=== PATIENT | male | born 1940 | race Caucasian/White ===

== ENCOUNTER 2017-04-05 11:51 | Emergency (ER) | payer MEDICARE ==
[~2017-04-05] VITALS: Ht 182.9 cm; Wt 90.8 kg
[~2017-04-05 11:51] MED LIST: FOSI20 PO; GLYB1TAB50 PO; JUNUVIA; ROSU5 PO; ULTR50TA OR
[2017-04-05 11:54] VITALS: BP 164/86; PULSE 80; RESP 16; TEMP 98.8; O2SAT 100
[2017-04-05] MEDS ORDERED: METF500T PO (12:08)
[2017-04-05] MEDS ORDERED: GLIP10TA6 PO (12:08)
[2017-04-05] MEDS ORDERED: ROSU5 PO (12:08)
[2017-04-05] MEDS ORDERED: FOSI20TA PO (12:08)
[2017-04-05] MEDS ORDERED: CLIN1CAP6 PO (12:11)
[2017-04-05] MEDS ORDERED: TETANUS/DIPHTHERIA TOXOID ADULT 0.5 ML VIAL IM ONE (12:15)
--- NOTE | 2017-04-05 12:24 | PD ---
HPI Chief Complaint: Skin Problem Time Seen by Provider: 12:12 Travel History International Travel<30 days: No Contact w/Intl Traveler<30days: No Traveled to known affect area: No History of Present Illness HPI 77-year-old male presents to the emergency room for evaluation of skin infections to left forearm and dorsal right third MCP joint. 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 He cut himself on a branch on his left forearm about 1.5 weeks ago and on the right hand a few days ago. States he has been applying triple antibiotic ointment and it seems to be getting worse. Patient believes ointment is very old/possibly . Denies significant pain in the left but reports [id number] pain over the right hand. Denies loss of range of motion or paresthesias. Denies fever, chills, nausea, vomiting, and streaking. Last tetanus was in 2009. PFSH Past Medical History Cardiovascular Problems: Yes (HTN) High Cholesterol: Yes Diabetes: Yes (TYPE 2- METFORMIN) Patient Takes Glucophage: Yes Diminished Hearing: No Hypertension: Yes Influenza Vaccination: No Past Surgical History Tonsillectomy: Yes Social History Alcohol Use: Yes (2 DRINKS A NIGHT) Tobacco Use: No Substance Use: No Allergies-Medications (Allergen,Severity, Reaction): Coded Allergies: No Known Allergies (Verified , 04/05/17) Reported Meds & Prescriptions Reported Meds & Active Scripts Active Clindamycin (Clindamycin HCl) 300 Mg Cap 300 Mg PO Q6H 10 Days Reported Metformin (Metformin HCl) 500 Mg Tab 500 Mg PO BIDPC With meals Fosinopril (Fosinopril Sodium) 20 Mg Tab 20 Mg PO BID Crestor (Rosuvastatin Calcium) 5 Mg Tab 5 Mg PO DAILY Glipizide 10 Mg Tab 10 Mg PO BIDAC Take 30 minutes before a meal Review of Systems Except as stated in HPI: all other systems reviewed are Neg Physical Exam Narrative GENERAL: Well-nourished, well-developed male in no acute distress. Afebrile. Ambulatory. SKIN: Focused skin assessment warm/dry. There is a fluctuant area in the right dorsal hand over the third MCP joint which measures about 2 cm in diameter. No induration, pointing, or drainage. There is a zone of inflammation around it but no lymphangitis. There is a 2 cm area of erythema with impetiginization over the left dorsal, proximal forearm. No lymphangitis. HEAD: Normocephalic. EYES: No scleral icterus. No injection or drainage. NECK: Supple, trachea midline. No JVD or lymphadenopathy. CARDIOVASCULAR: Regular rate and rhythm without murmurs, gallops, or rubs. RESPIRATORY: Breath sounds equal bilaterally. No accessory muscle use. MUSCULOSKELETAL: No cyanosis, or edema. Full range of motion of his bilateral upper extremities. Data Data Last Documented VS Vital Signs Date Time Temp Pulse Resp B/P Pulse Ox O2 Delivery O2 Flow Rate FiO2 04/05/17 11:54 98.8 80 16 164/86 100 Orders Wound Culture And Gram Stain (04/05/17 12:11) Tetanus/Diphtheria Tox Adult (Tetanus/Di (04/05/17 12:15) MDM Medical Decision Making Medical Screen Exam Complete: Yes Emergency Medical Condition: Yes Medical Record Reviewed: Yes Differential Diagnosis Cellulitis, abscess, wound infection, folliculitis Narrative Course 77-year-old male presents to the emergency room for evaluation of 2 wound infections to his left dorsal forearm and right dorsal hand. Left arm infection has been present for 1.5 weeks and hand infection has been present a few days. No systemic signs of infection. Vital signs stable. He has been applying triple antibiotic ointment without relief in symptoms. Physical exam reveals a 2 cm area of erythema of the left forearm with impetiginization and a small 1 cm area of fluctuance over the right third, dorsal MCP joint. No induration. No lymphangitis. A scalpel was used to pena the top layer of skin with expression of purulent drainage. Sample was sent to the lab for a culture. Patient updated on tetanus. Discharged with prescription for clindamycin and told to follow up with primary care physician or return for worsening symptoms. Patient understands and agrees to plan. Procedures Procedure Narrative INCISION AND DRAINAGE OF ABSCESS: The area was prepped with chlorhexidine. A number 11 scalpel was used to make a 0.5 cm incision in the top layer of skin and across the area of the abscess. The abscess was drained and irrigated with normal saline. Cultures were obtained. Sterile dressing applied. Diagnosis Primary Impression: Abscess Referrals: Primary Care Physician Patient Instructions: Abscess (ED), Cellulitis (ED), General Instructions Additional Instructions: Rest and drink plenty of fluids. Take clindamycin as directed, until gone. Follow up with a primary care physician. Return to emergency room for worsening symptoms, as discussed. Med/Other Pt SpecificInfo: Prescription(s) given Scripts Clindamycin 300 Mg [id number] Mg PO Q6H 10 Days Ref 0 Prov:Carson Daniel MD 04/05/17 Disposition: 01 DISCHARGE HOME Condition: Stable Priya Kitchen Apr 05, 2017 12:24
== END 2017-04-05 12:33 | disposition home or self-care (01) ==
LOC: PHEFT 11:51
DX: L02.91 Cutaneous abscess, unspecified (principal); B95.0 Streptococcus, group A, as the cause of diseases classified elsewhere; Z23 Encounter for immunization
CPT/HCPCS: 10060; 87070; 90471; 90714

== ENCOUNTER 2017-04-23 15:37 | Emergency (ER) | payer MEDICARE ==
[~2017-04-23] VITALS: Ht 182.9 cm; Wt 90.0 kg
[~2017-04-23 15:37] MED LIST changes: +CLIN1CAP6 PO; -FOSI20 PO; +FOSI20TA PO; +GLIP10TA6 PO; -GLYB1TAB50 PO; -JUNUVIA; +METF500T PO; -ULTR50TA OR
[2017-04-23 15:49] VITALS: BP 157/86; PULSE 91; RESP 16; TEMP 97.8; O2SAT 95
[2017-04-23] MEDS ORDERED: OMEP20TA PO (16:00)
[2017-04-23] MEDS ORDERED: DILT120T PO (16:00)
[2017-04-23] MEDS ORDERED: LISI-515 PO (16:00)
[2017-04-23] MEDS ORDERED: CETI10CH CHEW (16:00)
[2017-04-23] MEDS ORDERED: ROSU1TAB8 PO (16:00)
[2017-04-23] MEDS ORDERED: LIDOCAINE HCL 1% 50 ML VIAL INFIL ONE (16:15)
--- NOTE | 2017-04-23 16:25 | PD ---
HPI Chief Complaint: Laceration/Skin Injury Time Seen by Provider: 16:08 Travel History International Travel<30 days: No Contact w/Intl Traveler<30days: No Traveled to known affect area: No History of Present Illness HPI 77 year-old male presents to the emergency room for evaluation of head laceration that occurred just prior to arrival. Patient tripped on a wire and fell forward striking the top of his head on an organ before falling to the ground. He did not hit his head on the ground. States he applied pressure to the wound and came straight to the emergency room. Patient denies any other pain. He denies loss of consciousness, headache, nausea, vomiting, confusion, dizziness, or visual changes. He is not on blood thinners. Last tetanus was one month ago. PFSH Past Medical History Cardiovascular Problems: Yes (HTN) High Cholesterol: Yes Diabetes: Yes (TYPE 2- METFORMIN) Patient Takes Glucophage: Yes Diminished Hearing: No Hypertension: Yes Past Surgical History Tonsillectomy: Yes Social History Alcohol Use: Yes (2 DRINKS A NIGHT) Tobacco Use: No Substance Use: No Allergies-Medications (Allergen,Severity, Reaction): Coded Allergies: No Known Allergies (Verified , 04/23/17) Reported Meds & Prescriptions Reported Meds & Active Scripts Active Reported Cetirizine (Cetirizine HCl) 10 Mg Chew 10 Mg CHEW DAILY Rosuvastatin (Rosuvastatin Calcium) 20 Mg Tab 20 Mg PO DAILY Omeprazole 20 Mg Tab 20 Mg PO DAILY Diltiazem (Diltiazem HCl) 120 Mg Tab 180 Mg PO DAILY Lisinopril 20 Mg Tab 20 Mg PO DAILY Metformin (Metformin HCl) 500 Mg Tab 1,000 Mg PO BIDPC With meals Glipizide 10 Mg Tab 5 Mg PO BIDAC Take 30 minutes before a meal Review of Systems Except as stated in HPI: all other systems reviewed are Neg Physical Exam Narrative GENERAL: Well-nourished, well-developed male in no acute distress. Afebrile. Ambulatory. SKIN: Focused skin assessment warm/dry. There is a 4 cm well approximated, linear laceration on the top of the scalp. HEAD: Normocephalic. EYES: No scleral icterus. No injection or drainage. NECK: Supple, trachea midline. No JVD or lymphadenopathy. CARDIOVASCULAR: Regular rate and rhythm without murmurs, gallops, or rubs. RESPIRATORY: Breath sounds equal bilaterally. No accessory muscle use. NEUROLOGICAL: Awake and alert. Cranial nerves II through XII intact. Motor and sensory grossly within normal limits. Five out of 5 muscle strength in all muscle groups. Normal speech. Data Data Last Documented VS Vital Signs Date Time Temp Pulse Resp B/P (MAP) Pulse Ox O2 Delivery O2 Flow Rate FiO2 04/23/17 15:49 97.8 91 16 157/86 (109) 95 Orders Orders Lidocaine 1% Inj (50 Ml) (Xylocaine 1% I (04/23/17 16:15) [facility] Medical Decision Making Medical Screen Exam Complete: Yes Emergency Medical Condition: Yes Medical Record Reviewed: Yes Differential Diagnosis Laceration, contusion, abrasion, head injury Narrative Course 77-year-old male presents to the emergency room for evaluation of laceration to the top of his head that occurred just prior to arrival. Patient tripped and hit his head on an organ before falling to the ground. He denies loss of consciousness or hitting his head on the ground. No headache, nausea, vomiting , dizziness, confusion, or changes in visual acuity. He is not on blood thinners. No focal neurological deficits. Physical exam reveals a 4 cm well approximated laceration to the top of the scalp. Patient is bald around the laceration. He was offered sutures or jayme with the knowledge that jayme will likely cause a larger scar. Patient states "I'm 77 years old, I don't really care about cosmetics" so laceration will be repaired with jayme. Patient discharged with wound care instructions and told to follow up with a primary care physician or return for worsening symptoms. He understands and agrees to plan Procedures Procedure Narrative LACERATION LOCATION: Top of scalp LENGTH: 4 cm NUMBER OF STITCHES/JAYME: 5 REPAIR: The area of the laceration was prepped with Betadine and sterilely draped. The laceration was infiltrated with 1% lidocaine. The wound was copiously irrigated and explored without evidence of foreign body, tendon injury or neurovascular injury. The wound was closed using staple gun. This was a single layer repair. A sterile dressing was applied. The patient was advised to keep the dressing clean and dry. Patient tolerated the procedure well. Diagnosis Primary Impression: Scalp laceration Qualified Codes: S01.01XA - Laceration without foreign body of scalp, initial encounter Referrals: Primary Care Physician Additional Instructions: Keep wound clean and dry. Wash daily with soap and water. Apply triple antibiotic ointment daily. [place] out in 7 days. Follow-up with PCP as needed or return for worsening symptoms. Disposition: 01 DISCHARGE HOME Condition: Stable Priya Kitchen Apr 23, 2017 16:25
== END 2017-04-23 16:59 | disposition home or self-care (01) ==
LOC: PHEFT 15:37
DX: S01.01XA Laceration without foreign body of scalp, initial encounter (principal); W18.09XA Striking against other object with subsequent fall, initial encounter
CPT/HCPCS: 12002

== ENCOUNTER 2017-05-01 16:23 | Emergency (ER) | payer MEDICARE ==
[~2017-05-01] VITALS: Ht 182.9 cm; Wt 91.0 kg
[~2017-05-01 16:23] MED LIST changes: +CETI10CH CHEW; -CLIN1CAP6 PO; +DILT120T PO; -FOSI20TA PO; +LISI-515 PO; +OMEP20TA PO; +ROSU1TAB8 PO; -ROSU5 PO
[2017-05-01 16:33] VITALS: BP 140/70; PULSE 75; RESP 14; TEMP 97.9; O2SAT 96
--- NOTE | 2017-05-01 17:07 | PD ---
HPI Chief Complaint: Wound/Suture/Staple Re-Check Time Seen by Provider: 16:47 Travel History International Travel<30 days: No Contact w/Intl Traveler<30days: No Traveled to known affect area: No History of Present Illness HPI 77-year-old male here for staple removal to the top of the scalp. Patient sustained a laceration was repaired with jayme approximately 10 days ago. Patient denies fever, chills, increased pain or drainage from the site. He has no medical complaint. PFSH Past Medical History Cardiovascular Problems: Yes (HTN) High Cholesterol: Yes Diabetes: Yes Patient Takes Glucophage: No Diminished Hearing: No GERD: Yes Hypertension: Yes Influenza Vaccination: Yes ?: Not Past Surgical History Tonsillectomy: Yes Social History Alcohol Use: Yes (2 DRINKS A NIGHT) Tobacco Use: No Substance Use: No Allergies-Medications (Allergen,Severity, Reaction): Coded Allergies: No Known Allergies (Verified , 04/23/17) Reported Meds & Prescriptions Reported Meds & Active Scripts Active Reported Cetirizine (Cetirizine HCl) 10 Mg Chew 10 Mg CHEW DAILY Rosuvastatin (Rosuvastatin Calcium) 20 Mg Tab 20 Mg PO DAILY Omeprazole 20 Mg Tab 20 Mg PO DAILY Diltiazem (Diltiazem HCl) 120 Mg Tab 180 Mg PO DAILY Lisinopril 20 Mg Tab 20 Mg PO DAILY Metformin (Metformin HCl) 500 Mg Tab 1,000 Mg PO BIDPC With meals Glipizide 10 Mg Tab 5 Mg PO BIDAC Take 30 minutes before a meal Review of Systems Except as stated in HPI: all other systems reviewed are Neg Physical Exam Narrative GENERAL: Well-nourished, well-developed patient. SKIN: Focused skin assessment warm/dry. Well-healed laceration to the scalp. The wound edges are well approximated there is no drainage there is no evidence of infection. [address] HEAD: Normocephalic. EYES: No scleral icterus. No injection or drainage. NECK: Supple, trachea midline. No JVD or lymphadenopathy. CARDIOVASCULAR: Regular rate and rhythm without murmurs, gallops, or rubs. RESPIRATORY: Breath sounds equal bilaterally. No accessory muscle use. Data Data Last Documented VS Vital Signs Date Time Temp Pulse Resp B/P (MAP) Pulse Ox O2 Delivery O2 Flow Rate FiO2 05/01/17 16:33 97.9 75 14 140/70 (93 96 Room Air MDM Medical Decision Making Medical Screen Exam Complete: Yes Emergency Medical Condition: Yes Differential Diagnosis Wound recheck, staple removal, other Narrative Course 27-year-old male presents emergency department for staple removal to his scalp. Patient reports no fever chills or increased pain or drainage from the site. 5 jayme removed from the scalp. The wound is well healing and well approximate. Procedures Procedure Narrative 5 Ajyme removed from scalp. Patient tolerated procedure well. Wound edges well approximate. No drainage. No sign of infection. Diagnosis Primary Impression: Removal of staple Referrals: Primary Care Physician Disposition: 01 DISCHARGE HOME Condition: Stable Anny Castro May 01, 2017 17:07
== END 2017-05-01 17:16 | disposition home or self-care (01) ==
LOC: PHEFT 16:23
DX: Z48.02 Encounter for removal of sutures (principal)
CPT/HCPCS: 99281